=== PATIENT | male | born 1975 | race Caucasian/White ===

== ENCOUNTER 2020-09-10 11:25 | Outpatient (CLI) | payer OTHER, SELFPAY ==
--- NOTE | ~2020-09-10 | XR_ITS ---
XR_[id number]_CR DATE: 09/10/2020 12:08 INDICATION: Neck pain, thoracic back pain between shoulder blades TECHNIQUE: AP, open-mouth, lateral views COMPARISON: None FINDINGS: There is straightening of the cervical spine which may be due to muscle spasm. No fracture or dislocation or locked facet or prevertebral soft tissue swelling. C1 and C2 are normal ly aligned and the odontoid process is intact. There is mild degenerative disc disease at C4-5 and C5-6 and moderately prominent degenerative disc d isease at C6-7. There is mild degenerative spurring of the uncovertebral joints in the mid and lower cervical spine. IMPRESSION: Straightening Moderate cervical spondylosis Reviewed, dictated and finalized at [facility]. Reviewed, dictated and finalized at [facility].
--- NOTE | ~2020-09-10 | XR_ITS ---
XR thoracic spine min 4V DATE: 09/10/2020 12:08 INDICATION: Neck pain and thoracic back pain between shoulder blades TECHNIQUE: AP, lateral, swimmer views COMPARISON: None FINDINGS: There is no fracture or dislocation or bone destruction. The thoracic pedicles are intact. No paraspinal soft tissue thickening. There is mild degenerative spurring of the upper thoracic spine and moderately prominent degenerative spurring of the lower thoracic spine. Surgical clips, right upper quadrant, consistent with cholecystectomy IMPRESSION: Degenerative spurring Reviewed, dictated and finalized at [facility]. IMPRESSION: Degenerative spurring
== END 2020-09-10 11:26 | disposition home or self-care (01) ==
LOC: ANHIMG 11:41
PROVIDERS: PCP Family Medicine; Visit Provider Family Medicine
DX: M54.6 Pain in thoracic spine (principal); M77.8 Other enthesopathies, not elsewhere classified; M46.04 Spinal enthesopathy, thoracic region; M53.82 Other specified dorsopathies, cervical region; M47.812 Spondylosis without myelopathy or radiculopathy, cervical region
CPT/HCPCS: 72040; 72074

== ENCOUNTER 2020-11-09 09:27 | Outpatient (CLI) | payer OTHER, SELFPAY ==
--- NOTE | ~2020-11-09 | MR_ITS ---
EXAMINATION: MR cervical spine wo con DATE: 11/09/2020 10:36 INDICATION: Neck pain. Right arm pain. TECHNIQUE: Magnetic resonance imaging (MRI) of the cervical spine was performed without intravenous c ontrast. Sequences included sagittal T2-weighted FSE, sagittal T2-weighted FS FSE, sagittal T1-weight ed FSE, axial MERGE, and axial T2-weighted FSE. COMPARISON: Cervical spine radiographs 09/10/2020 FINDINGS: There is mild kyphosis of cervical spine. Vertebral body heights are normal. There is mildl y decreased disc height at C4-C5, C5-C6, and C6-C7. The spinal cord signal intensity is normal. The f ollowing disc levels are specifically discussed: C2-C3: There is a central protrusion. There is no uncovertebral joint osteoarthritis. There is mild r ight and moderate left facet joint osteoarthritis. There is mild left neural foraminal stenosis. Ther e is mild central canal stenosis. C3-C4: The disc is bulging. There is moderate left uncovertebral joint osteoarthritis. There is mild bilateral facet joint osteoarthritis. There is mild left neural foraminal stenosis. There is mild yoan tral canal stenosis. C4-C5: The disc is bulging. There is severe bilateral uncovertebral joint osteoarthritis. There is mi ld bilateral facet joint osteoarthritis. There is mild right and moderate left neural foraminal steno sis. There is mild central canal stenosis with ventral indentation of the spinal cord. C5-C6: The disc is bulging. There is severe bilateral uncovertebral joint osteoarthritis. There is mi ld bilateral facet joint osteoarthritis. There is moderate bilateral neural foraminal stenosis. There is mild central canal stenosis with ventral indentation of the spinal cord. C6-C7: The disc is bulging. There is moderate bilateral uncovertebral joint osteoarthritis. There is mild bilateral facet joint osteoarthritis. There is moderate right and mild left neural foraminal regine nosis. There is mild central canal stenosis. C7-T1: The disc does not extend beyond the endplate margin. There is no uncovertebral joint osteoarth ritis. There is moderate bilateral facet joint osteoarthritis. There is mild bilateral neural foramin al stenosis. There is no central canal stenosis. IMPRESSION: 1. Moderate cervical spondylosis. Reviewed, dictated and finalized at [facility].
== END 2020-11-09 09:28 | disposition home or self-care (01) ==
PROVIDERS: PCP Family Medicine
DX: M47.892 Other spondylosis, cervical region (principal)
CPT/HCPCS: 72141